=== PATIENT | female | born 1970 | race Caucasian/White ===

== ENCOUNTER 2018-11-30 06:52 | Emergency (ER) | payer BC ==
[~2018-11-30] VITALS: Ht 149.9 cm; Wt 49.4 kg
[~2018-11-30 06:52] MED LIST: ATIVAN0.5 MG; IBUPROFEN 200200 M1 PO; NORCO 5-325 TA1 EACH PO; PERCOCET 5-3251 EACH PO; WELLBUTRIN XL150 M2; ZOFRAN ODT4 MG PO
[2018-11-30] MEDS ORDERED: CLONAZEPAM 1 MG1 M1 PO (07:01)
[2018-11-30] MEDS ORDERED: AMBIEN 5 MG TABL5 M1 PO (07:02)
[2018-11-30 07:34] LABS: HEMATOCRIT 45.9 % (37.0-47.0); HEMOGLOBIN 15.2 gm/dL (12.0-15.0); MCH 30.9 pg (26.0-34.0); MCV 93.4 fL (80.0-100.0); MPV 8.4 fl. (7.2-11.1); NUCLEATED RBCS 0 /100WBC; PLATELET COUNT* 390 thou/uL (150-400); RBC 4.92 mil/uL (4.20-5.00); WBC 16.5 thou/uL (4.0-11.0)
[2018-11-30 07:41] LABS: ANION GAP 14 mmol/L (7-16); BUN 11 mg/dL (7-18); CALCIUM 9.5 mg/dL (8.5-10.1); CHLORIDE 103 mmol/L (98-107); CO2 25 mmol/L (21-32); CREATININE 0.8 mg/dL (0.6-1.3); GLUCOSE 118 mg/dL (70-99); POTASSIUM 3.8 mmol/L (3.5-5.1); SODIUM 142 mmol/L (136-145)
[2018-11-30 07:50] LABS: ALBUMIN 4.6 g/dL (3.4-5.0); ALKALINE PHOSPHATASE 101 U/L (46-116); LIPASE 93 U/L (73-393); SGOT 19 U/L (15-37); SGPT 29 U/L (30-65); TOTAL BILIRUBIN 0.4 mg/dL (<0.1-1.0); TOTAL PROTEIN 8.6 g/dL (6.4-8.2); TROPONIN-I LEVEL <0.06 ng/mL (<0.06)
[2018-11-30 08:14] LABS: ABSOLUTE BASOPHILS 0.2 thou/uL (0.0-0.2); ABSOLUTE LYMPHOCYTES 1.7 thou/uL (0.8-5.3); ABSOLUTE MONOCYTES 0.5 thou/uL (0.0-1.2); ABSOLUTE NEUTROPHILS 14.2 thou/uL (1.6-8.1); ANISOCYTOSIS 1+; PLATELET ESTIMATE ADEQUATE; POIKILOCYTOSIS 1+
[2018-11-30 08:56] LABS: URINE BILIRUBIN NEGATIVE (Negative); URINE BLOOD 3+ (Negative); URINE CLARITY SL CLOUDY; URINE GLUCOSE-RANDOM NEGATIVE (Negative); URINE KETONES 2+ (Negative); URINE LEUKOCYTES-REFLEX NEGATIVE (Negative); URINE NITRITE-REFLEX NEGATIVE (Negative); URINE PROTEIN TRACE (Negative); URINE UROBILINOGEN 0.2 E.U./dl (0.2-1.0)
[2018-11-30 09:00] LABS: URINE COLOR STRAW
[2018-11-30 09:01] LABS: BACTERIA-REFLEX 1-9 Few /HPF (None Seen); CASTS None Seen /LPF (None Seen); CRYSTALS None Seen /LPF (None Seen); MUCUS 0-3 Light strn/LPF (None Seen); SQUAMOUS 0-3 Few /LPF (0-3); URINE WBC-REFLEX 0-5 Rare /HPF (0-5)
[2018-11-30 09:02] LABS: AMP/METHAMP Negative (Negative); BARBITURATES Negative (Negative); BENZODIAZEPINES Negative (Negative); COCAINE Negative (Negative); METHADONE Negative (Negative); OPIATES Negative (Negative); PCP Negative (Negative); THC POSITIVE (Negative)
[2018-11-30] MEDS ORDERED: ZOFRAN ODT4 MG DISSOLVE (10:01)
[2018-11-30] MEDS ORDERED: NORCO 5-325 TA1 EAC1 PO (10:01)
[2018-11-30 10:16] VITALS: BP 129/58
--- NOTE | 2018-12-02 12:19 | EKG ---
[place] [address] ELECTROCARDIOGRAM REPORT Name: RISSA TREJO Room: [facility]#: [id number] Admission: 11/30/18 Attend Phys: Discharge: 11/30/18 Date of : 72 Report #: [id number] THIS REPORT FOR: //name// [facility] ED Test Date: 2018-11-30 Test Time: 07:28:35 Pat Name: RISSA TREJO Department: Room: Gender: F Certified Alcohol Counselor: : 1970 Requested By: Eloy Gamboa Order Number: [id number] MD: Vince Manzano Measurements Intervals [place] Rate: 52 P: 51 DE: 136 QRS: 67 QRSD: 75 T: 74 QT: 463 QTc: 431 Interpretive Statements Sinus rhythm nonspecific st-t changes No previous ECG available for comparison Electronically Signed On 12-02-2018 12:19:21 CDT by Vince Manzano [email or web address] <ELECTRONICALLY SIGNED> By: Vince Manzano MD, [facility] 12/02/18 1219 0728 0728 Vince Manzano MD, FACC /EPI
== END 2018-11-30 10:17 | disposition home or self-care (01) ==
LOC: M.ERS 06:52
PROVIDERS: Emergency Medicine Emergency Medical Services
DX: R10.11 Right upper quadrant pain (principal); R10.12 Left upper quadrant pain; R10.13 Epigastric pain; R11.2 Nausea with vomiting, unspecified; F32.9 Major depressive disorder, single episode, unspecified; Z88.1 Allergy status to other antibiotic agents